=== PATIENT | female | born 1955 | race Two or more races ===

== ENCOUNTER 2017-03-17 18:04 | Emergency (ER) | payer OTHER ==
[~2017-03-17] VITALS: Ht 154.9 cm; Wt 44.9 kg
[~2017-03-17 18:04] MED LIST: CALC500T79 PO; GLUC100017 PO; MULT1CAP34 PO; OMEG1CAP PO
--- NOTE | 2017-03-17 18:15 | NUR ---
AAOX3, SENT BY PMD FOR ABLAB ELEVATED POTASSIUM 6.2. RR IS EVEN AND UNLABORED WITH NAD NOTED. SKIN IS WARM AND DRY. PLACED ON MONITOR. WILL CONTINUOUSLY MONITOR THE PATIENT. AWAITING MD FOR EVAL.
--- NOTE | 2017-03-17 18:18 | NUR ---
DR YEH AT BS FOR EVAL.
[2017-03-17 18:38] LABS: BASOPHILS # (AUTO) 0.1 /CMM (0.0-0.2); BASOPHILS % (AUTO) 0.9 % (0.0-2.0); EOSINOPHILS # (AUTO) 0.1 /CMM (0.0-0.7); EOSINOPHILS % (AUTO) 2.3 % (0.0-6.0); HEMATOCRIT 35 % (33-45); HEMOGLOBIN 11.2 g/dL (11.5-14.8); LYMPHOCYTES # (AUTO) 1.4 /CMM (0.8-4.8); LYMPHOCYTES % (AUTO) 22.8 % (20.0-44.0); MEAN CORPUSCULAR HEMOGLOBIN 21 PG (26.0-33.0); MEAN CORPUSCULAR HGB CONC 32 g/dl (31.0-36.0); MEAN CORPUSCULAR VOLUME 67 fL (82-100); MONOCYTES # (AUTO) 0.4 /CMM (0.1-1.30); MONOCYTES % (AUTO) 6.2 % (2.0-12.0); NEUTROPHILS # (AUTO) 4.1 /CMM (1.8-8.9); NEUTROPHILS % (AUTO) 67.8 % (43.0-81.0); PLATELET COUNT (AUTO) 202 /CMM (150-450); RDW COEFFICIENT OF VARIATION 13.7 (11.5-15.0); RED BLOOD CELL COUNT(AUTO) 5.27 MIL/uL (4.0-5.2); WHITE BLOOD COUNT (AUTO) 6.1 K/uL (4.3-11.0)
[2017-03-17 18:51] LABS: CREATININE 0.7 mg/dL (0.6-1.3); POTASSIUM 3.8 mmol/L (3.5-5.1)
[2017-03-17 19:02] LABS: ALBUMIN 3.7 g/dL (3.4-5.0); BILIRUBIN,TOTAL 0.2 mg/dL (0.2-1.0); TOTAL PROTEIN, SERUM 7.5 g/dL (6.4-8.2)
--- NOTE | 2017-03-17 19:18 | NUR ---
REPORT REC'D FROM DANIEL BARRETT FOR [facility].
--- NOTE | 2017-03-17 19:35 | NUR ---
PT AMBULATED TO THE BATHROOM WITH A STEADY GAIT.
--- NOTE | 2017-03-17 19:40 | NUR ---
PT RETURNED TO BED #1.
--- NOTE | 2017-03-17 19:44 | NUR ---
DR. YEH IS AT THE BEDSIDE SPEAKING TO THE PT.
[2017-03-17 20:07] VITALS: BP 111/66
--- NOTE | 2017-03-17 20:08 | NUR ---
Patient discharged to home in stable condition. Written and verbal after care instructions given. Patient verbalizes understanding of instruction. IV removed. Catheter intact and site benign. Pressure and 4x4 applied to site. No bleeding noted. Pt ambulatory with a steady gait. VSS, NAD noted on DC. Denies complaint on DC.
== END 2017-03-17 20:09 | disposition home or self-care (01) ==
LOC: ER 18:06
DX: D64.9 Anemia, unspecified (principal); E87.5 Hyperkalemia; M06.9 Rheumatoid arthritis, unspecified; Z90.89 Acquired absence of other organs
CPT/HCPCS: 36415; 80053; 83735; 85025; 99284; A4606; Z7610